=== PATIENT | male | born 1940 | race Caucasian/White ===

== ENCOUNTER 2023-02-01 15:12 | Outpatient (REF) | payer MEDICARE, SELFPAY ==
[2023-02-01 17:06] LABS: Folate 11.7 ng/mL (> or = 4.0); Vitamin B12 388 pg/mL (200-900); Vitamin D 25-OH Total 28.4 ng/mL (>30)
[2023-02-01 17:10] LABS: T4 Thyroxine 3.8 ug/dL (4.5-12.0)
== END 2023-02-01 15:13 | disposition home or self-care (01) ==
LOC: HO.LAB 15:12
PROVIDERS: PCP Pediatrics; Referring Provider Pediatrics; Visit Provider Psychiatry & Neurology Neurology
DX: M54.16 Radiculopathy, lumbar region (principal); F03.90 Unspecified dementia, unspecified severity, without behavioral disturbance, psychotic disturbance, mood disturbance, and anxiety
CPT/HCPCS: 36415; 82306; 82607; 82746; 84436; 84443